=== PATIENT | male | born 1970 | race Caucasian/White ===

== ENCOUNTER → 2021-02-07 | Day surgery (SDC) | payer OTHER ==
[~2021-02-07] MED LIST: CT SWABBABLE VALVE TRANS SET 1 EA INFUS.SET MC ONE; IOHEXOL-350 100 ML VIAL IV ONE; IV NS 0.9% 250 ML IV ONE; IV NS 0.9% 500 ML IV PRN; METOPROLOL TARTRATE INJ 5 MG/5 ML AMPUL ONE
[2021-02-07] MEDS: METOPROLOL TARTRATE INJ 5 MG/5 ML AMPUL IVP PRN ×3 (14:55→15:06)
[2021-02-07 15:06] VITALS: BP 144/68
--- NOTE | 2021-02-07 15:08 | NUR ---
PT AWAKE ALERT ORIENTED VITAL SIGN NOTED STABLE HL ON LEFT AC NSR ON MONITOR CTA COMPLETED VITAL SIGN STABLE PT BACK TO [facility] AWAKE ALERT ORIENTED NO CHANGE NOTED VITAL SIGN STABLE.
== END | disposition home or self-care (01) ==
LOC: CT 14:08
PROVIDERS: ATTEND Internal Medicine Interventional Cardiology
DX: I25.10 Atherosclerotic heart disease of native coronary artery without angina pectoris (principal)
CPT/HCPCS: 75574; J3490; J7050; Q9967 ×2